=== PATIENT | female | born 1990 | race Caucasian/White ===

== ENCOUNTER 2018-03-25 17:32 | Emergency (ER) | payer OTHER, MEDICAID ==
--- NOTE | 2018-03-25 19:13 | CT ---
CT OF THE FACIAL BONES: Date: 03-25-18 Technique: Spiral CT of the face was performed with attention to the mandible following trauma. Axial slices were acquired and then coronal and sagittal reconstructions were done. 3D reconstructions thr ough the region were done as well. FINDINGS: No fracture was visible. The mandible appears intact, as do all facial bones. The zygomatic arches, o rbital rims and nasal bones showed no acute change. There is some mild nasal septal deviation towards the right, almost certainly long standing. The paranasal sinuses are clear. IMPRESSION: No acute traumatic findings. POS: HOME
== END 2018-03-25 18:24 | disposition home or self-care (01) ==
LOC: BURERS 17:32
DX: M26.601 Right temporomandibular joint disorder, unspecified (principal); F17.210 Nicotine dependence, cigarettes, uncomplicated
CPT/HCPCS: 70486